=== PATIENT | female | born 1995 ===

== ENCOUNTER 2022-11-21 15:25 | Inpatient (IN) | payer BC ==
[~2022-11-21] VITALS: Ht 180.3 cm; Wt 91.8 kg
[2022-11-21] VITALS (19 sets, daily range): BP systolic 110–140; BP diastolic 55–92; PULSE 58–95; TEMP 98–98.5
--- NOTE | 2022-11-21 15:35 | NUR ---
PT AMBULATORY TO LR2 WITH SPOUSE. PT HERE FOR EXTERNAL VERSION. PT DENIES ANY VAGINAL BLEEDING, LEAKING OF FLUID, REGULAR CONTRACTIONS OR DECREASED MOVEMENT. FHR MONITOR/TOCO APPLIED. MATERNAL VITAL SIGNS WNL. PLAN OF CARE DISCUSSED. PT VERBALIZES UNDERSTANDING.
[2022-11-21 17:14] LABS: BASO % 0.2 % (0.0-2.0); EOS % 0.2 % (0.0-4.0); GRAN # 8.8 K/mm3 (1.4-6.5); GRAN % 77.8 % (42.2-75.2); HEMOGLOBIN 12.7 g/dl (12.5-16.0); LYMPH # 1.6 K/mm3 (1.2-3.4); LYMPH % 14.5 % (20.0-51.0); MEAN CELL VOLUME 90 fl (80.0-100.0); MEAN CORPUSCULAR HEMOGLOBIN 31 pg (27-31); MEAN CORPUSCULAR HGB CONC 34 g/dl (33.0-37.0); MEAN PLATELET VOLUME 11.9 fl (7.4-10.4); MONO # 0.8 K/mm3 (0.1-0.6); MONO % 6.9 % (1.7-9.3); PLATELET COUNT 248 K/mm3 (130-400); RED BLOOD COUNT 4.12 M/mm3 (4.10-5.30); REDCELL DISTRIBUTION WIDTH-CV 13.5 % (11.5-14.5)
--- NOTE | 2022-11-21 17:45 | NUR ---
1645 DR MARSHALL AT PT'S BEDSIDE DISCUSSING EXTERNAL VERSION. PT VERBALIZES UNDERSTANDING. 1712 THIS RN, DR PACHECO, AND DR MARSHALL AT PT'S BEDSIDE. TERBUTALINE GIVEN VIA IV. 1712 DR PACHECO AND DR MARSHALL START EXTERNAL VERSION. 3 ATTEMPTS ARE MADE TO FLIP BABY FROM TRANSVERSE TO VERTEX. ATTEMPTS FAILED. 1717 DR MARSHALL ATTEMPTING TO GET FHR. FHR AUDIBLY SLOW AND INTERMITTENTLY PICKING UP IN 80S. 1720 DECISION FOR EMERGENT C SECTION 1723 PT OFF MONITORS AND BEING TRANSFERRED TO OR. 1724 ANESTHESIA START TIME. 1732 VIABLE DELIVERED. S TECH RN TAKES OVER CARE OF INFANT. 1733 PLACENTA DELIVERED.
--- NOTE | 2022-11-21 17:55 | NUR ---
NESS USED DURING C SECTION
--- NOTE | 2022-11-21 18:00 | NUR ---
1758 THIS RN CALLS X RAY TO COME TO LABOR AND DELIVERY OR TO CONFIRM INSTRUMENT AND LAP COUNT. 1820 DR MARSHALL AND XRAY [employer] MACHINE OPERATOR CONFIRM THAT FIELD IS CLEAR OF INSTRUMENTS AND LAPS.
--- NOTE | 2022-11-21 18:23 | NUR ---
To PACU by bed. Drowsy, tearful, orients easily.
[2022-11-22] VITALS: BP 132/66; PULSE 85
[2022-11-22 03:00] VITALS: BP 140/63; PULSE 82
--- NOTE | 2022-11-22 03:00 | NUR ---
up to bathroom with steady gait. Voids good amount.
[2022-11-22 08:15] VITALS: BP 114/72; PULSE 69; TEMP 97.4
--- NOTE | 2022-11-22 10:22 | NUR ---
Initial visit; Parents thanked Screenplay Writer for offering congratulations and God's blessings for the of their son. Screenplay Writer thankef family for choosing [facility].
[2022-11-22 12:58] VITALS: BP 130/76; PULSE 103; TEMP 97.2
[2022-11-22 16:55] VITALS: BP 122/78; PULSE 71; TEMP 97.6
--- NOTE | 2022-11-22 19:20 | NUR ---
Pt visiting with family at this time. IV removed by this RN and covered with 2x2 and tape. Pressure applied. Pt denies any needs at this time.
[2022-11-22 20:45] VITALS: BP 114/69; PULSE 89; TEMP 97.9
[2022-11-23 07:41] VITALS: BP 115/65; PULSE 72; TEMP 98.4
[2022-11-23] MEDS ORDERED: IBU800 M1 PO (08:54)
[2022-11-23] MEDS ORDERED: ROXICODONE 55 MG/TAB PO (08:55)
[2022-11-23] MEDS ORDERED: TYLENOL 500MG500 MG PO (08:55)
[2022-11-23 16:50] VITALS: BP 117/74; PULSE 81; TEMP 97.9
== END 2022-11-23 18:00 | disposition home or self-care (01) | DRG 788 ==
LOC: LDRO 15:25 → OB 17:31
PROVIDERS: Obstetrics & Gynecology; ADMIT Obstetrics & Gynecology
PROC: 10D00Z1 Extraction of Products of Conception, Low, Open Approach (ICD-10-PCS; principal; 2022-11-21)
DX: O48.0 Post-term pregnancy (principal); Z3A.40 40 weeks gestation of pregnancy; Z37.0 Single live birth; Z67.41 Type O blood, Rh negative; O32.2XX0 Maternal care for transverse and oblique lie, not applicable or unspecified; O76 Abnormality in fetal heart rate and rhythm complicating labor and delivery
CPT/HCPCS: J0330; J0665; J0690; J1100; J1885; J2250; J2405; J2704; J2791; J3010; J3105; J7120